=== PATIENT | male | born 1945 | race Caucasian/White ===

== ENCOUNTER 2016-08-20 05:39 | Emergency (ER) | payer OTHER ==
--- NOTE | 2016-08-20 06:02 | EDPHY ---
HPI/HX/ROS/PE/MDM Narrative: Chief complaint: Foot infection and left little finger HPI: 71-year-old male went to bed last night with some irritation on his distal left little finger. He woke up this morning to find redness and swelling and pointing at the base of his fingernail on his left 5th finger. Denies any recent injuries. No fevers or chills. No numbness or tingling. ROS: 10 point Review of Systems is negative except as noted in the HPI. Physical exam: General: Awake, alert, no acute distress Left hand: He has a paronychia on the left 5th finger primarily on the ulnar aspect. There is some surrounding erythema. Erythema does not extend to the middle phalanx. He has full flexion extension strength. There is no tenderness along the flexor or extensor tendon sheath. Sensations intact laterally medially. Cap refills less than 2 seconds. ED Course: Procedure: Regional anesthesia. A digital nerve block was performed on the left little finger with 0.5% bupivacaine. To punctures were made on the medial aspect portion of the finger from a dorsal approach. Approximately 1.5 mL of bupivacaine was infiltrated. Patient tolerated the procedure well. There no complications. This performed by me Procedure: Paronychia drainage. The patient's paronychia was located on the left little finger. I obtained verbal consent from the patient to drain the abscess who was informed about the possibility of bleeding and pain. The abscess was incised with blunt dissection and a moderate amount of purulent drainage was expressed. The patient tolerated the procedure well. The procedure was performed by myself. General Time Seen by Provider: 08/20/16 05:51 Initial Vital Signs: Initial Vital Signs Temperature (C) 36.3 C 08/20/16 05:43 Heart Rate 80 08/20/16 05:43 Respiratory Rate 20 08/20/16 05:43 Blood Pressure 163/93 H 08/20/16 05:43 O2 Sat (%) 93 08/20/16 05:43 O2 Delivery Mode Room Air Allergies/Adverse Reactions: Sulfa (Sulfonamide Antibiotics) Allergy (Verified 08/20/16 05:42) Home Medications: Medication Instructions Recorded Cephalexin [Keflex (*)] 500 mg PO Q6H #28 cap 08/20/16 Departure - Departure Disposition: Home, Routine, Self-Care Clinical Impression: Paronychia Condition: Good Instructions: Paronychia (ED) Additional Instructions: Soak the affected finger in warm soapy water twice a day for the next 5-7 days for 5-10 minutes. Take your full course of antibiotics. Follow up with her primary care physician in 4-5 days for re-evaluation. Return to the emergency depart for increasing pain, redness spreading of her hand, fevers, chills, or any other concerns. Prescriptions: Cephalexin [Keflex (*)] 500 mg PO Q6H #28 cap
[2016-08-20 06:38] VITALS: BP 138/87; PULSE 61; RESP 12; TEMP 98.1; O2SAT 95
== END 2016-08-20 06:37 | disposition home or self-care (01) ==
PROC: 0J9K0ZZ Drainage of Left Hand Subcutaneous Tissue and Fascia, Open Approach (ICD-10-PCS; principal; 2016-08-20)
DX: L03.012 Cellulitis of left finger (principal)

== ENCOUNTER 2016-10-19 12:10 | Emergency (ER) | payer OTHER ==
[2016-10-19 12:24] VITALS: TEMP 98.1
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
[2016-10-19 14:00] VITALS: BP 138/93; PULSE 75; RESP 16; O2SAT 93
== END 2016-10-19 14:00 | disposition home or self-care (01) ==
DX: S43.102A Unspecified dislocation of left acromioclavicular joint, initial encounter (principal); S80.12XA Contusion of left lower leg, initial encounter; V11.4XXA Pedal cycle driver injured in collision with other pedal cycle in traffic accident, initial encounter; Y92.410 Unspecified street and highway as the place of occurrence of the external cause; Y99.8 Other external cause status; Y93.89 Activity, other specified

== ENCOUNTER 2016-10-22 07:31 | Emergency (ER) | payer OTHER ==
[2016-10-22 07:36] VITALS: TEMP 97.2
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
[2016-10-22 08:51] VITALS: BP 134/82; PULSE 72; RESP 16; O2SAT 95
== END 2016-10-22 08:50 | disposition home or self-care (01) ==
PROC: 0H9FXZZ Drainage of Right Hand Skin, External Approach (ICD-10-PCS; principal; 2016-10-22)
DX: L03.011 Cellulitis of right finger (principal)

== ENCOUNTER 2018-07-15 05:26 | Observation (INO) | payer OTHER ==
--- NOTE | 2018-07-14 16:41 | GHP ---
ADMISSION DIAGNOSIS: Urinary retention secondary to BPH. HISTORY OF PRESENT ILLNESS: This is a 73-year-old gentleman who has had previous urinary tract infec tions, BPH with elevated PSA. He has had enlarged prostate on ultrasound and intravesical lobe of th e prostate. His last PSA value was 2.73. At the present time, because of his urinary retention wher e his residual urine as of 06/15/2018, was 490, and his prostate gland in 2013, measured at 56 g, and most recently in March of this year, it was 56 g with an intravesical lobe. His PSA most recent was 4.78. The PSA's have varied from 3 to almost 6 over the years. At the present time, he is admi tted for TUR of the prostate. Indication, complications of options have been discussed. Written and verbal consent were obtained. He is admitted for the above procedure. PAST MEDICAL HISTORY: BPH as noted. He has also had a family history of prostate cancer. History o f prostatitis and urinary frequency. MEDICATIONS: On admission, have been multivitamins, lutein, gingko, glucosamine, baby aspirin, and A leve. ALLERGIES: Sulfa. FAMILY HISTORY: Positive for prostate cancer and diabetes. SOCIAL HISTORY: Moderate alcohol consumption, nonsmoker, and he is not . REVIEW OF SYSTEMS: Negative cardiac, respiratory, GI, and endocrine. PHYSICAL EXAM: VITAL SIGNS: On his preop visit, blood pressure is 123/79, heart rate 62, respiratio ns 16, temp 97.5, and on physical exam vital signs stable. CHEST: Clear. HEART: Regular rate and rhythm. ABDOMEN: Normal, no organomegaly, rebound, or guarding. EXTREMITIES: Lower extremities ar e normal. At the present time, he is admitted for TUR of the prostate. Indications and complications associate d with this have been discussed. Written and verbal consents were obtained. He is admitted for the above procedure. /[id number]/MODL
[2018-07-15] MEDS ORDERED: ceFAZolin 2 GM/DEXTROSE 100 ML IV ONE (05:46)
[2018-07-15] MEDS ORDERED: LR 1,000 ML IV ONE (05:47)
[2018-07-15] MEDS ORDERED: MIDAZOLAM 2 MG/2 ML VIAL IVP ONE (06:58)
--- NOTE | 2018-07-15 06:58 | PDANEPAE ---
ANE History of Present Illness 73 yo for turp ANE Past Medical History - Cardiovascular History Hx Hypertension: No Hx Arrhythmias: No Hx Chest Pain: No Hx Coronary Artery / Peripheral Vascular Disease: No Hx CHF / Valvular Disease: No Hx Palpitations: No - Pulmonary History Hx COPD: No Hx Asthma/Reactive Airway Disease: No Hx Recent Upper Respiratory Infection: No Hx Oxygen in Use at Home: No Hx Sleep Apnea: No Sleep Apnea Screening Result - Last Documented: Negative - Neurologic History Hx Cerebrovascular Accident: No Hx Seizures: No Hx Dementia: No - Endocrine History Hx Diabetes: No - Renal History Hx Renal Disorders: No - Liver History Hx Hepatic Disorders: No - Neurological & Psychiatric Hx Hx Neurological and Psychiatric Disorders: No - Cancer History Hx Cancer: No - Congenital Disorder History Hx Congenital Disorders: No - GI History Hx Gastrointestinal Disorders: No - Other Health History Other Health History: nne - Chronic Pain History Chronic Pain: No - Surgical History Prior Surgeries: last sx 1992 hernia repair ANE Review of Systems Review of Systems: - Exercise capacity METS (RN): 6 METS ANE Patient History - Allergies Allergies/Adverse Reactions: Sulfa (Sulfonamide Antibiotics) Allergy (Verified 06/30/18 10:25) Unknown - Home Medications Home Medications: Ascorbic Acid [Vitamin C 500 mg (*)] 500 mg PO DAILY 06/30/18 [Last Taken ] Glucosamine Sulfate [Glucosamine Sulfate 500 MG (*)] 500 mg PO DAILY 06/30/18 [ Last Taken 07/14/18] Herbals/Supplements -Info Only 1 each PO DAILY 06/30/18 [Last Taken 07/09/18] Naproxen Sodium [Aleve 220 MG (*)] 220 mg PO BID PRN 06/30/18 [Last Taken ] - NPO status NPO Status: no food or drink >8 hours NPO Since - Liquids (Date): 07/14/18 NPO Since - Liquids (Time): 18:00 NPO Since - Solids (Date): 07/14/18 NPO Since - Solids (Time): 18:00 - Smoking Hx Smoking Status: Never smoked - Family Anes Hx Family Hx Anesthesia Complications: none ANE Labs/Vital Signs - Vital Signs Blood Pressure: 148/95 Heart Rate: 66 Respiratory Rate: 16 O2 Sat (%): 96 Height: 5 ft 9 in Weight: 65.771 kg ANE Physical Exam - Airway Neck exam: FROM Mallampati Score: Class 2 Mouth exam: normal dental/mouth exam - Pulmonary Pulmonary: no respiratory distress - Cardiovascular Cardiovascular: regular rate and rhythym - ASA Status ASA Status: II ANE Anesthesia Plan Anesthesia Plan: spinal
--- NOTE | 2018-07-15 07:02 | PDHPUP ---
History & Physical Update H&P update statement: This history and physical update is based on an assessment of the patient which was completed after admission or registration (within 24 hours), but prior to the surgery/procedure. H&P update: H&P reviewed & patient examined, no change in patient's condition since H&P completed
[2018-07-15] MEDS ORDERED: PROPOFOL/EMULSION 500 MG/50 ML BOTTLE IV ONE (07:12)
[2018-07-15] MEDS ORDERED: fentaNYL 100 MCG/2 ML INJ ONE (07:28)
[2018-07-15] MEDS ORDERED: oxyCODONE IR 5 MG TAB PO PRN (07:32)
[2018-07-15] MEDS ORDERED: ONDANSETRON DISINTEGRATING 4 MG TAB PO PRN (07:32)
[2018-07-15] MEDS ORDERED: HYDROCODONE/APAP 5/325 TAB PO PRN (07:32)
[2018-07-15] MEDS ORDERED: ZOLPIDEM TARTRATE 5 MG TAB PO PRN (07:32)
[2018-07-15] MEDS ORDERED: ACETAMINOPHEN 325 MG TAB PO PRN (07:32)
[2018-07-15] MEDS ORDERED: ONDANSETRON 4 MG/2 ML VIAL IVP PRN ×2 (07:32→09:02)
[2018-07-15] MEDS ORDERED: OPIUM/BELLADONNA ALKALO SUPP PR PRN (07:32)
--- NOTE | 2018-07-15 07:36 | POSTOPPROG ---
Post Op Note Date of Operation: 07/15/18 (dictated) Surgeon: Brennan eLung Anesthesia: LMA Pre-op Diagnosis: bph retention Procedure: turp Inf/Abcess present in the surg proc area at time of surgery?: No EBL: 50-100 Drains: Other (rodríguez) Specimen(s): sent
[2018-07-15] MEDS ORDERED: NAPROXEN SODIUM 220 MG TAB PO PRN (07:45)
[2018-07-15] MEDS ORDERED: LIDOCAINE 2% JELLY 20 ML (UROJECT) ONE (07:59)
[2018-07-15] MEDS ORDERED: HYDROmorphONE/DILAUDID 2 MG/ML INJ IVP PRN (09:02)
[2018-07-15] MEDS ORDERED: fentaNYL 100 MCG/2 ML INJ IVP PRN (09:02)
[2018-07-15] MEDS ORDERED: NALOXONE HCL 0.4 MG/ML INJ IVP PRN (09:02)
--- NOTE | 2018-07-15 09:04 | GOP ---
DATE OF OPERATION: 07/15/2018 SURGEON: Brennan Leung MD ANESTHESIOLOGIST: Carmen Pradhan MD. PREOPERATIVE DIAGNOSIS: Urinary retention secondary to BPH and elevated PSA. POSTOPERATIVE DIAGNOSIS: Urinary retention secondary to BPH and elevated PSA. PROCEDURE PERFORMED: Transurethral resection of the prostate. FINDINGS: DESCRIPTION OF PROCEDURE: After undergoing general anesthesia being prepped and draped in the normal sterile fashion and appropriate time-out, his meatus was dilated at 26-Estonian, and then I was able t o pass the resectoscope transurethrally into the bladder. He had +4 trabeculation. No tumors or sto alcides were noted. Then, at that point, the intravesical lobe of the prostate was taken down with the b ipolar instrumentation and then the right lateral lobe, right portions of the posterior lobe resected , left lateral lobe and left portions of the posterior lobe resected. At the end of the procedure, h is bladder was Ellik'd free of all chips and clots. Visualization revealed no residual chips or clot s. Ureteral orifices were preserved. External sphincter approximated at the midline symmetrically. Verumontanum preserved and Uro-jet placed in the urethra. A 22 three-way catheter passed in the moni dder 90+ cc and balloon inflated, traction placed, and irrigated clear. Specimen sent to Pathology. He will be admitted for postop care. I will give his spouse a call so she can return to the [facility] in a couple hours to see him in his hospital bed. /[id number]/MODL
--- NOTE | 2018-07-15 09:04 | POSTANESTH ---
Post Anesthetic Evaluation Cardiovascular Status: Normal, Stable Respiratory Status: Normal, Stable Level of Consciousness/Mental Status: Can Participate in Eval Pain Control: Adequate, Prn Tx Ordered Nausea/Vomiting Control: Adequate, Prn Tx Ordered Complications Possibly Related to Anesthesia: None Noted
--- NOTE | 2018-07-15 14:54 | ASMTCMCOM ---
CM Note CM Note Notes: Pt is 73 yo M with benign prostatic hyperplasia with urinary retention. Pt underwent surgery today, pending prostate pathology. Pt will likely be discharged independent once medically stable. Pt reports he is vegan, no issues obtaining food. CM available should needs arise. Plan: Independent Date Signed: 07/15/2018 02:54 PM Electronically Signed By:LULU Galvez
[2018-07-15] MEDS: ASCORBIC ACID 500 MG TAB PO SCH (15:40)
[2018-07-15] MEDS: GLUCOSAMINE SULF 500 MG CAP PO SCH (15:40)
[2018-07-15] MEDS: D5W 1/2 NS 1,000 ML IV SCH (15:42)
[2018-07-16] MEDS: D5W 1/2 NS 1,000 ML IV SCH (02:52)
[2018-07-16] MEDS: ASCORBIC ACID 500 MG TAB PO SCH (08:30)
[2018-07-16] MEDS: GLUCOSAMINE SULF 500 MG CAP PO SCH (08:30)
[2018-07-16 12:14] VITALS: BP 125/85
--- NOTE | 2018-07-16 13:23 | SOAPPROG ---
[facility] Progress Note Assessment/Plan: Assessment: BPH with urinary obstruction Acute POD 1, no complaints Plan: DC home, path pending, follow up 3 weeks 07/16/18 13:22 Subjective: no pain, no complaints Objective: Vital Signs Temp Pulse Resp BP Pulse Ox 36.6 C 61 16 125/85 H 96 07/16/18 12:12 07/16/18 12:12 07/16/18 12:12 07/16/18 12:12 07/16/18 12:12 07/15/18 07/16/18 07/17/18 05:59 05:59 05:59 Intake Total 2248 309 Output Total 920 2280 Balance 1328 -1971 Physical Exam - Physical Exam General Appearance: alert Respiratory: No respiratory distress Back: No CVA tenderness Neuro/Psych: alert, oriented x 3 ICD10 Worksheet Patient Problems: Problems Problem Status Onset BPH with urinary obstruction Acute - ICD10 Problem Qualifiers (1) BPH with urinary obstruction
== END 2018-07-16 15:58 | disposition home or self-care (01) ==
LOC: INTOOBSV 05:26 → F1N 05:26
PROVIDERS: ADMIT Specialist; ATTEND Specialist
PROC: 0VT08ZZ Resection of Prostate, Via Natural or Artificial Opening Endoscopic (ICD-10-PCS; principal; 2018-07-15 07:15)
DX: N40.1 Benign prostatic hyperplasia with lower urinary tract symptoms (principal); R35.0 Frequency of micturition; R97.20 Elevated prostate specific antigen [PSA]; R33.8 Other retention of urine; N13.8 Other obstructive and reflux uropathy; Z79.82 Long term (current) use of aspirin; Z87.440 Personal history of urinary (tract) infections; Z80.42 Family history of malignant neoplasm of prostate; Z88.2 Allergy status to sulfonamides
CPT/HCPCS: J0690; J2250; J2704; J3010